=== PATIENT | female | born 1990 | race Caucasian/White ===

== ENCOUNTER 2023-12-27 09:09 | Emergency (ER) | payer SELFPAY ==
[~2023-12-27] VITALS: Ht 157.5 cm; Wt 59.0 kg
[~2023-12-27 09:09] MED LIST: CODACE30 PO; NEOPOLHCSU AS
[2023-12-27] MEDS ORDERED: buprenorphine HCL 2 MG TAB.SUBL SL ONE (09:30)
== END 2023-12-27 10:16 | disposition left against medical advice (07) ==
LOC: ER 09:09
DX: F11.23 Opioid dependence with withdrawal (principal); Z88.8 Allergy status to other drugs, medicaments and biological substances; Z53.29 Procedure and treatment not carried out because of patient's decision for other reasons
CPT/HCPCS: 99281